=== PATIENT | male | born 1990 | race Caucasian/White ===

== ENCOUNTER 2025-04-20 09:38 | Emergency (ER) | payer OTHER ==
[~2025-04-20] VITALS: Ht 180.3 cm; Wt 89.9 kg
[2025-04-20] MEDS ORDERED: VALACYCLOVIR1000 MG PO ×2 (10:20→10:23)
[2025-04-20] MEDS ORDERED: OXYCODONE/ACETAMINOPHEN 1 TAB HOME.PACK PO ONE (10:30)
[2025-04-20] MEDS ORDERED: OXYCODONE/APAP 5/325 TAB PO ONE (10:30)
[2025-04-20 10:39] VITALS: BP 138/77
[2025-04-21] MEDS ORDERED: NEURONTIN300 MG PO (10:35)
== END 2025-04-20 10:40 | disposition home or self-care (01) ==
LOC: ED 09:38
DX: B02.9 Zoster without complications (principal); Z88.5 Allergy status to narcotic agent; Z88.2 Allergy status to sulfonamides; Z88.1 Allergy status to other antibiotic agents
CPT/HCPCS: 99282